=== PATIENT | male | born 1960 | race Caucasian/White ===

== ENCOUNTER → 2017-06-28 | Outpatient (CLI) | payer OTHER, BC ==
--- NOTE | 2017-06-28 13:17 | DIAGNOSTIC IMAGING REPORT ---
ABDOMEN FOR HERNIA CLINICAL HISTORY: POSSIBLE HYDROCELE VS HERNIA mass TECHNIQUE: Ultrasound COMPARISON STUDY: None FINDINGS: Ultrasonic evaluation of the left groin pre and post Valsalva shows no evidence for hernia or abnormal mass by ultrasound criteria. IMPRESSION: Normal study with no evidence for hernia or abnormal mass The above report was generated using voice recognition software. It may contain grammatical, syntax or spelling errors. Electronically signed by: Low Hart M.D. 06/28/2017 1:16 PM Dictated Date/Time: 06/28/2017 1:15 PM
--- NOTE | 2017-06-28 13:33 | DIAGNOSTIC IMAGING REPORT ---
(TESTICULAR) SCROTUM-CONT HISTORY: Mass HYDROCELE VS HERNIA COMPARISON: None. FINDINGS: Right testis: There are no intratesticular masses. Normal color flow. No hydrocele. The epididymis is unremarkable. Maximum dimension 5.2 cm Left testis: Large left hydrocele measuring 12 x 7 cm IMPRESSION: 1. Normal testicular ultrasound. 2. Large left hydrocele measuring 12 x 7 cm. The above report was generated using voice recognition software. It may contain grammatical, syntax or spelling errors. Electronically signed by: Low Hart M.D. 06/28/2017 1:32 PM Dictated Date/Time: 06/28/2017 1:16 PM
== END | disposition home or self-care (01) ==
LOC: C.ULTR 12:18
PROVIDERS: ATTEND Surgery
DX: N43.3 Hydrocele, unspecified (principal)